=== PATIENT | female | born 1965 | race Caucasian/White ===

== ENCOUNTER 2016-06-01 13:50 | Emergency (ER) | payer OTHER ==
[2016-06-01 14:06] VITALS: RESP 16
--- NOTE | 2016-06-01 14:31 | CPEKG ---
Heart Rate: 88 RR Interval: 682 P-R Interval: 156 QRSD Interval: 76 QT Interval: 380 QTC Interval: 460 P [place]: 46 QRS [place]: 31 T Wave [place]: -35 EKG Severity - ABNORMAL ECG - EKG Impression: SINUS RHYTHM EKG Impression: NONSPECIFIC T ABNORMALITIES, ANTERIOR LEADS Electronically Signed By: Aries Lawson 02-Jun-2016 00:03:19
[2016-06-01] MEDS ORDERED: ASPIRIN 81 MG CHEWABLE TAB PO ONE ×2 (14:56)
[2016-06-01] MEDS ORDERED: NITROGLYCERIN 0.4 MG BTL SL ONE (15:14)
[2016-06-01 15:15] LABS: % IMMATURE GRANULYOCYTES 0.2 % (0.0-1.1); ABSOLUTE IMMATURE GRANULOCYTES 0.01 10^3/uL (0.00-0.10); ADD DIFF? NO; ADD MORPH? NO; ADD SCAN? NO; ATYPICAL LYMPHOCYTE FLAG 60 (0-99); FRAGMENT RBC FLAG 0 (0-99); HEMATOCRIT 47.9 % (38.0-47.0); HEMOGLOBIN 15.9 g/dL (12.6-16.3); LEFT SHIFT FLG 0 (0-99); LIPEMIA HEMOLYSIS FLAG 80 (0-99); MEAN CELL HEMOGLOBIN 27.5 pg (27.9-34.1); MEAN CELL HEMOGLOBIN CONCENTR. 33.2 g/dL (32.4-36.7); MEAN CELL VOLUME 82.7 fL (81.5-99.8); MEAN PLATELET VOLUME 8.7 fL (8.7-11.7); PLATELET CLUMPS FLAG 0 (0-99); PLATELET COUNT 283 10^3/uL (150-400); RED BLOOD CELL COUNT 5.79 10^6/uL (4.18-5.33); RED CELL DISTRIBUTION WIDTH 15.4 % (11.5-15.2)
[2016-06-01 15:25] LABS: INR 0.9 (0.83-1.16); PROTIME(PATIENT) 11.9 SEC (12.0-15.0)
[2016-06-01 15:33] LABS: ANION GAP 16 mEq/L (8-16); CALCIUM 9.7 mg/dL (8.5-10.4); CARBON DIOXIDE 23 mEq/l (22-31); CHLORIDE 105 mEq/L (97-110); CREATININE 0.7 mg/dL (0.6-1.0); GLOMERULAR FILTRATION RATE > 60; GLUCOSE 93 mg/dL (70-100); POTASSIUM 3.7 mEq/L (3.5-5.2); SODIUM 144 mEq/L (134-144)
[2016-06-01 15:39] LABS: TROPONIN I < 0.012 ng/mL (0-0.034)
--- NOTE | 2016-06-01 16:29 | UCPHY ---
H & P Patient Type: Established Chief Complaint Nursing Narrative: SICK FOR 8 DAYS, ON CEFDINIR SINCE 05/29 FEELING WORSE WITH CHEST CONGESTION AND BURNING, NAUSEA Time Seen by Provider: 06/01/16 14:54 HPI/ROS: This patient has had coughing for the past 8 days. She describes this is a dry hacky cough and she is placed on Omnicef by her primary care physician for potential bacterial bronchitis. She reports some burning discomfort in her chest 6/10 intensity that is substernal in bilateral location. It does not radiate. Does not change with breath or cough. The onset of the chest discomfort was yesterday. She has also had nausea since yesterday. She still tolerating p.o. intake with this. She also reports mild dyspnea and occasional diaphoresis. She states that she has a history of coronary artery spasm that usually manifests as jaw pain. She has not had any jaw pain with this episode. When she does have the coronary spasm with jaw pain usually resolves with supple nitroglycerin. She has not taken any nitroglycerin for this chest discomfort because she does not think that it is from her heart. ROS: No high fevers or chills. No significant fatigue. No other constitutional symptoms. HEENT: She has some nasal congestion associated with her symptoms and was prominent early in the illness and she reports that now settling in her chest. No ear pain. No throat pain. Pulmonary: No pleuritic pain. No respiratory distress. She has noticed significant wheezing. Cardiovascular: No lightheadedness or palpitations. No lower extremity swelling or calf pain. GI: No vomiting. No diarrhea. No abdominal pain. Integumentary: No skin rash. 10 point ROS is otherwise negative. 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 Her anginal equivalent is jaw pain. Dyslipidemia. She was on a statin and until last week. This was stopped due to associated myalgias. She weights the start of a new cholesterol med by her primary doctor or blending machine operator. Hx Asthma: No Hx Chronic Respiratory Disease: No Hx Diabetes: No Hx Cardiac Disease: Yes Hx Renal Disease: No Hx Cirrhosis: No Hx Alcoholism: No Hx HIV/AIDS: No Hx Splenectomy or Spleen Trauma: No Other PMH: cardiac arterial spasams, htn, parathyroid 2015 removal - Family History Significant Family History: No pertinent family hx - Social History Smoking Status: Never smoked Alcohol Use: Occasionally Drug Use: None - Physical Exam Exam: General Appearance: Pleasant 51-year-old female appears younger than her stated age. Alert, no distress. Eyes: Pupils equal and round no pallor or injection. ENT, Mouth: Mucous membranes moist. Respiratory: Clear to auscultation with minimal wheeze with cough. No rales or rhonchi. No chest wall tenderness is appreciated. Cardiovascular: Regular rate and rhythm. No murmur gallop rub. No calf swelling or tenderness. Gastrointestinal: Abdomen is soft and nontender, no masses, bowel sounds normal. Neurological: Alert with no focal deficits. Skin: Warm and dry, no rashes. Musculoskeletal: Neck is supple nontender. Extremities are symmetrical, full range of motion. Psychiatric: Mood and affect are normal. DIFFERENTIAL DIAGNOSIS: After history and physical exam differential diagnosis was considered for bronchitis, coronary syndrome, SD, pneumothorax, pneumonia Constitutional: Initial Vital Signs Temperature (C) 36.8 C 06/01/16 14:02 Heart Rate 93 06/01/16 14:02 Respiratory Rate 16 06/01/16 14:02 Blood Pressure 153/83 H 06/01/16 14:02 O2 Sat (%) 98 06/01/16 14:02 O2 Delivery Mode Room Air Allergies/Adverse Reactions: amoxicillin Allergy (Verified 06/01/16 14:06) Sulfa (Sulfonamide Antibiotics) Allergy (Verified 06/01/16 14:06) Home Medications: Medication Instructions Recorded Aspirin EC [Aspirin EC 81 mg (*)] 81 mg PO DAILY 11/23/15 Amlodipine Besylate 5 mg PO DAILY #30 tablet 11/30/15 Nitroglycerin [Nitrostat 0.4 mg 0.4 mg SL Q5M PRN #0 btl 11/30/15 (*)] Medical Decision Making - Diagnostics EKG Interpretation: 12 lead EKG performed at 2:29 p.m. reveals sinus rhythm at 88 Intervals: Normal throughout [place]: Normal throughout ST segments are notable for T-wave inversions in lead V2 and V3 with a less than a mm of ST depression in V3. Initial assessment: Sinus rhythm with anterior T-wave abnormalities cannot rule out ischemia. However when compared to an EKG dated November 30, 2015 there is no significant interval change. She has T inversions anteriorly on that EKG as well. Imaging: Chest x-ray: Normal with the exception of mild airway disease by my interpretation ED Course/Re-evaluation: IV, monitor, aspirin 324 p. o. 1 supple nitroglycerin without change in her burning discomfort in her chest. Review of her labs reveals normal troponin Other labs are unremarkable-CBC electrolytes. Discussion: This chest pain is atypical for a cardiac sores but because of the abnormal EKG pursued workup to rule out SD or coronary syndrome. After reviewing previous EKG there is no significant interval change and not think she is having coronary syndrome or SD. I think that the burning discomfort is attributable to her bronchitis. I counseled regarding this. Patient will continue Omnicef with addition of an albuterol inhaler for cough, wheeze or shortness of breath. I encouraged her to follow up with Dr. Quiros -blending machine operator this week for further evaluation as well for any ongoing chest discomfort. She will go to the emergency department for any significant worsening despite the treatment plan. - Data Points Laboratory Results: Laboratory Results 06/01/16 15:10 06/01/16 15:10 06/01/16 06/01/16 06/01/16 15:10 15:10 15:10 WBC 5.00 10^3/uL 10^3/uL (3.80-9.50) RBC 5.79 10^6/uL H 10^6/uL (4.18-5.33) Hgb 15.9 g/dL g/dL (12.6-16.3) Hct 47.9 % H % (38.0-47.0) MCV 82.7 fL fL (81.5-99.8) MCH 27.5 pg L pg (27.9-34.1) MCHC 33.2 g/dL g/dL (32.4-36.7) RDW 15.4 % H % (11.5-15.2) Plt Count 283 10^3/uL 10^3/uL (150-400) MPV 8.7 fL fL (8.7-11.7) Neut % (Auto) 54.2 % % (39.3-74.2) Lymph % (Auto) 33.2 % % (15.0-45.0) [place] % (Auto) 10.2 % % (4.5-13.0) Eos % (Auto) 1.8 % % (0.6-7.6) Baso % (Auto) 0.4 % % (0.3-1.7) Nucleat RBC Rel Count 0.0 % % (0.0-0.2) Absolute Neuts (auto) 2.71 10^3/uL 10^3/uL (1.70-6.50) Absolute Lymphs (auto) 1.66 10^3/uL 10^3/uL (1.00-3.00) Absolute Monos (auto) 0.51 10^3/uL 10^3/uL (0.30-0.80) Absolute Eos (auto) 0.09 10^3/uL 10^3/uL (0.03-0.40) Absolute Basos (auto) 0.02 10^3/uL 10^3/uL (0.02-0.10) Absolute Nucleated RBC 0.00 10^3/uL 10^3/uL (0-0.01) Immature Gran % 0.2 % % (0.0-1.1) Immature Gran # 0.01 10^3/uL 10^3/uL (0.00-0.10) PT 11.9 SEC L SEC (12.0-15.0) INR 0.90 (0.83-1.16) APTT 28.0 SEC SEC (23.0-38.0) Sodium 144 mEq/L mEq/L (134-144) Potassium 3.7 mEq/L mEq/L (3.5-5.2) Chloride 105 mEq/L mEq/L (97-110) Carbon Dioxide 23 mEq/l mEq/l (22-31) Anion Gap 16 mEq/L mEq/L (8-16) BUN 15 mg/dL mg/dL (7-23) Creatinine 0.7 mg/dL mg/dL (0.6-1.0) Estimated GFR > 60 Glucose 93 mg/dL mg/dL (70-100) Calcium 9.7 mg/dL mg/dL (8.5-10.4) Troponin I < 0.012 ng/mL ng/mL (0-0.034) Medications Given: Discontinued Medications Albuterol Sulfate (Proventil Inh Prepack) 1 mdi TAKEHOME EDNOW ONE Stop: 06/01/16 16:58 Last Admin: 06/01/16 17:07 Dose: 1 mdi Aspirin (Aspirin) 324 mg PO EDNOW ONE Stop: 06/01/16 14:57 Last Admin: 06/01/16 15:13 Dose: 324 mg Aspirin (Aspirin) 324 mg PO EDNOW ONE Stop: 06/01/16 14:57 Last Admin: 06/01/16 15:01 Dose: Not Given Nitroglycerin (Nitrostat) 0.4 mg SL EDNOW ONE Stop: 06/01/16 15:15 Last Admin: 06/01/16 15:25 Dose: 0.4 mg Departure - Departure Disposition: Home, Routine, Self-Care Clinical Impression: Atypical chest pain, Bronchitis Condition: Good Instructions: Chest Pain (ED), Acute Bronchitis (ED) Additional Instructions: Diagnosis: 1. Atypical chest pain 2. Bronchitis Care your EKG with you so that you have a baseline EKG in case you have any further symptoms Plan: Humidifier Albuterol inhaler with spacer for cough, wheeze or shortness of breath Continue Omnicef antibiotic Ibuprofen and Tylenol for pain if needed. Call Dr. Quiros, your blending machine operator arrange follow-up appointment this week for further evaluation for any ongoing symptoms Go to the emergency department for any significant worsening of her symptoms despite the treatment plan. Referrals: Leonie Vazquez MD [Primary Care Provider] - As per Instructions - PQRS PQRS Measurement: NA
[2016-06-01 16:30] VITALS: BP 131/81; PULSE 78; TEMP 98.1; O2SAT 94
[2016-06-01] MEDS ORDERED: ALBUTEROL INH PREPACK MDI TAKEHOME ONE (16:57)
== END 2016-06-01 17:08 | disposition home or self-care (01) ==
LOC: CED 13:50
DX: R07.89 Other chest pain (principal); J40 Bronchitis, not specified as acute or chronic
CPT/HCPCS: 71020-PO; 80048-PO; 84484-PO; 85025-PO; 85610-PO; 85730-PO; 93010-PO; 99215-PO; G0463-PO

== ENCOUNTER → 2017-01-26 | Outpatient (CLI) | payer OTHER | LOC: CIMAGING 12:30 | PROVIDERS: ATTEND Podiatrist Foot & Ankle Surgery | DX: S82.61XS Displaced fracture of lateral malleolus of right fibula, sequela (principal) | CPT/HCPCS: 73610-PO ==

== ENCOUNTER 2017-06-16 03:16 | Observation (INO) | payer OTHER ==
[2017-06-16 05:02] VITALS: O2SAT 94
[2017-06-16] MEDS ORDERED: ONDANSETRON 4 MG/2 ML VIAL IVP PRN (05:51)
[2017-06-16] MEDS ORDERED: ACETAMINOPHEN 325 MG TAB PO PRN (05:51)
[2017-06-16] MEDS ORDERED: LORazepam 0.5 MG TAB PO PRN (05:51)
[2017-06-16] MEDS ORDERED: HYDROCODONE/APAP 5/325 TAB PO PRN (05:51)
[2017-06-16] MEDS ORDERED: NITROGLYCERIN 0.4 MG BTL SL PRN ×2 (05:56→13:42)
[2017-06-16] MEDS ORDERED: NS 1,000 ML IV SCH (06:00)
[2017-06-16 06:48] LABS: CREATINE KINASE 88 IU/L (0-156)
--- NOTE | 2017-06-16 08:12 | GHP ---
[f rep st] HISTORY AND PHYSICAL DATE OF ADMISSION: 06/16/2017 PRIMARY MOTION STUDY ANALYST: Dr. Quiros. SOURCE: Patient provides history, appears reliable. Her EMR was reviewed and case discussed with ED provider from [facility] prior to admission. CHIEF COMPLAINT: Chest pain. HISTORY OF PRESENT ILLNESS: This is a very pleasant 52-year-old female with past medical history sig nificant for hypertension, hyperlipidemia, LVH, fibromuscular dysplasia, CAD with history of vasospas m and renal artery stenosis who presents to the emergency department today at [facility] with complaints of new onset of left-sided chest pain and pressure. Patient was not significantly having any increased exertion when she developed her symptoms. She reports that when she lies on her right side, her pain is improved. She did try to take 2 doses of nitroglycerin as well as some aspirin itz or to arrival in the emergency department. She did have some minimal relief, but, however, her chest pain continued to persist, and so she presented to the emergency department. Patient, over there, r eceived a dose of morphine and reported some improvement in her symptoms. She had reported to the ER doctor there that her symptoms had resolved. However, patient states that she has had some underlyi ng chest pain that has persisted. It is mild but has increased since her arrival to [facility]. She denies any associated diaphoresis. She did state that she became clammy, but she does interm ittently have some hot flashes, and so she is unsure if this was associated with that or her chest pa in. She does report that she developed some numbness and tingling to her left neck, jaw, and left ar m and fingers which is new and a variation from her vasospasm symptoms. Patient denies any associate d shortness of breath. No nausea or vomiting. She denies any lower extremity edema. No orthopnea. No PND. Patient does report in the past week she did develop some myalgias and increasing fatigue, some minimal decrease in appetite, and she thought that perhaps she was coming down with a flu but ne pool developed any respiratory symptoms. She has not had any diarrhea. No known sick contacts. No d ysuria or hematuria. No other infections, fevers, or chills reported. REVIEW OF SYSTEMS: Negative except as noted above. ALLERGIES: Amoxicillin, sulfa, and certain statins. She develops some increasing fatigue. HOME MEDICATIONS: As per EMR. Amlodipine 2.5 mg p.o. daily, aspirin 81 mg p.o. daily, Coenzyme Q10 one hundred mg p.o. daily, Meloxicam mg p.o. daily, Nitrostat 0.4 mg sublingual q.5 minute s p.r.n. for chest pain, pravastatin 10 mg p.o. daily. PAST MEDICAL HISTORY: Significant for hyperlipidemia, history of fibromuscular dysplasia, renal ed ry stenosis, CAD, vasospasm, LVH. PAST SURGICAL HISTORY: Significant for parathyroidectomy, single, and LASIK surgery. Patient has al so had a cardiac cath without any stenting. FAMILY HISTORY: Significant for COPD in mother. SOCIAL HISTORY: Patient currently lives alone. She has been exposed to secondhand smoke as her moth er was a smoker in her youth. She does not smoke any tobacco. No drugs. She does drink 1-2 drinks a week. CODE STATUS: Full at this time. Patient will plan to go over her advance directives with her sister and consider. She is not sure if she would want to be intubated, but at this time she would like to be a full code. PHYSICAL EXAM: VITALS: Upon arrival to [facility], temperature 36.8, pulse 80, respiratory r ate 18, blood pressure 127/85, 95% on room air. Current vital signs on the floor: Blood pressure 14 1/89, heart rate of 73, respiratory rate 10, O2 sat 94% on room air with temperature 36.5. GENERAL: No acute distress. Very pleasant adult female who is lying quietly in bed. HEAD: Normocephalic, a traumatic. EYES: Extraocular muscles are grossly intact. Pupils equal, round, reactive to light bi laterally and symmetric. No scleral icterus or conjunctival injection. ENT: Mucous membranes appea r moist. She does have some cracked, dry lips. No oropharyngeal erythema or exudates. No nasal dis charge. NECK: Supple. Trachea midline. CV: Regular rate and rhythm. No murmurs, rubs, or gallop s appreciated. No chest wall tenderness to palpation. RESPIRATORY: Unlabored breathing. Lungs are clear to auscultation bilaterally. No wheezes, rales, or rhonchi. ABDOMEN: Positive bowel sounds. Soft, nontender to palpation. No rebound, guarding, or masses appreciated. : No suprapubic ten derness to palpation. No Lopez catheter in place. EXTREMITIES: No cyanosis, clubbing, or edema pao reciated. Patient with 1+ pedal pulses bilaterally and symmetric. NEURO: Grossly nonfocal. No fac ial drooping. Moves all extremities. Strength intact. Patient is able to sit up independently. PS YCH: Patient awake, alert, and oriented x4. Thought process, content, and questions are all appropr iate. LABORATORY STUDIES: From [facility]: WBC 7.6, hemoglobin is 15.8, hematocrit 47.9, MCV of 88 , platelet count is 308. MCV is 88. No bands. Sodium is 142, potassium is 3.8, chloride 106, CO2 i s 27, BUN 18, creatinine 0.92, GFR of 70.8, BUN is 20, glucose is 104, calcium is 9.3, and anion gap 13. Troponin was negative. Repeat laboratory studies: CK 88. CK-MB is 1.05. Troponin is negative. BTNP is less than 11. EKG from [facility] shows normal sinus rhythm. Patient with some T-wave inversions in the inf erior leads. EKG compared to one obtained in our system from 06/01/2016 which is nearly identical. There are no acute ST elevations. Chest x-ray report reviewed. This is in the chart, but I am unable to open it at this time. Formal radiology report in records was negative. ASSESSMENT AND PLAN: This is a pleasant 52-year-old female who presents as a direct admission from [facility] ER for ongoing chest pain. 1. Chest pain. Differential diagnosis including angina versus pericarditis versus pleuritic-type ch est pain. Serial enzymes at this time are negative. We will plan to obtain a repeat EKG to ensure s tability. Patient does continue to complain of some underlying chest pressure and pain. Morphine an d nitroglycerin did improve her symptoms and nearly resolve, but she states that they did not complet tristan go away and currently have increased slightly. We will plan to put patient on a nitro paste for continuous release. She did initially decline sublingual nitro secondary to the maxwell of post-nitro h eadache. She will have morphine available in addition. Cardiology will be consulted this morning. She is followed by Dr. Quiros. Patient did already take a full-dose aspirin prior to arrival at [facility]. We will continue to monitor her on PCU for observation for close telemetry monitoring. We will hold off on any NSAID dosing until can rule out an angina or acute coronary syndrome. A rep eat troponin, however, was within normal limits. We will await Cardiology recommendations. We will keep her n.p.o. 2. Hyperlipidemia. Resume patient's statin. 3. Coronary artery disease with history of vasospasm. 4. Patient reports history of left ventricular hypertrophy. Blood pressures at this time are contro lled. 5. Renal artery stenosis. Blood pressures are controlled. We will plan to resume patient's home me dications. 6. Fluid/electrolyte/nutrition. Patient will receive some IV fluids for gentle hydration. She does have some dry, cracked lips and, as noted, some minimal decrease in appetite, but tolerating oral in take previously to admission, but electrolytes will be monitored, replaced if needed. 7. Prophylaxis. SCDs. Holding anticoagulation pending Cardiology evaluation. 8. Code status at this time will be full. Patient desires her sister to act as MD POA if needed. 9. Disposition. Patient admitted to observation status on PCU for close cardiac monitoring pending Cardiology recommendations. /[id number]/MODL
[2017-06-16] MEDS ORDERED: NITROGLYCERIN 0.4 MG/HR PATCH TD SCH (09:00)
--- NOTE | 2017-06-16 09:10 | CPEKG ---
Heart Rate: 73 RR Interval: 822 P-R Interval: 164 QRSD Interval: 74 QT Interval: 404 QTC Interval: 446 P [place]: 54 QRS [place]: 38 T Wave [place]: -7 EKG Severity - ABNORMAL ECG - EKG Impression: SINUS RHYTHM EKG Impression: T ABNORMALITIES, DIFFUSE LEADS Electronically Signed By: Paul Elena 17-Jun-2017 10:16:41
[2017-06-16] MEDS ORDERED: amLODIPine BESYLATE 5 MG TAB PO SCH (09:15)
--- NOTE | 2017-06-16 09:42 | GCON ---
[f rep st] CONSULTATION CARDIOLOGY CONSULT REFERRING PHYSICIAN: Anna Pinzon MD CHIEF COMPLAINT: Chest pain. HISTORY OF PRESENT ILLNESS: This is a 52-year-old female with history of hypertension. The patient apparently has had episodes of chest pain in the past and sees Dr. Quiros as an outpatient. The олег tracey did have a catheterization done in the fall of 2015, which according to the patient was "normal." The patient indicates that yesterday she presented to [facility] with complaints of new onse t left-sided chest pain and pressure. She did indicate last week she did have what appeared to be a possible muscle pain, respiratory infection, though it did not progress into much. She indicates naa t her pain is mainly when she takes deep breaths in, and is worse when lying flat versus sitting up. Her pain actually is improved also when she lies on her right side versus her left. Currently, mary blackmon is afebrile. Blood pressure is mildly elevated. Troponins have been negative x1 set. ECG is cu rrently pending at this point, but on telemetry, the patient appears to be in normal sinus rhythm. PAST MEDICAL HISTORY: Significant for history of coronary vasospasm, renal artery stenosis, hyperten hai, hyperlipidemia, fibromuscular dysplasia. PAST SURGICAL HISTORY: Significant for parathyroidectomy. HOME MEDICATIONS: Consist of amlodipine, aspirin, coenzyme Q10, pravastatin. FAMILY HISTORY: Significant for COPD on the maternal side. SOCIAL HISTORY: No current smoking. No drugs. Alcohol: Once to twice a week. REVIEW OF SYSTEMS: Patient denies any vision changes. No headache. No palpitations. She indicates having dull substernal discomfort when she breathes deeply and lies completely supine. No shortness of breath. No abdominal pain. No lower extremity pain. PHYSICAL EXAM: VITAL SIGNS: Afebrile at 96, blood pressure 140/70, with a heart rate of 72, respira tions 12, sat 95% on room air. HEENT: Pupils equal, round, reactive to light and accommodation. Ex traocular muscles intact. CARDIOVASCULAR: Regular rate and rhythm, S1, S2. LUNGS: Clear bilaterally. ABDOMEN: Soft, nontender. No guarding . EXTREMITIES: No clubbing, no cyanosis, no edema. NEUROLOGIC: Alert and oriented x3. LABORATORY VALUES: Currently shows troponins of less than 0.01. Chem 7 and CBC are still pending. ASSESSMENT/PLAN: Chest pain. At this time, the patient's chest pain appears to be consistent with a pleuritic/pericardial etiology, as it is worse when she takes a deep breath in, lies completely supi ne, and improves when she sits forward. I will check a stat EKG, as an EKG has not been performed ye t. Also stat chem 7, CBC, as the labs are not in as well. We will start her on Indocin 25 mg p.o. b .i.d., as well as continue her home amlodipine dose. Check a cardiac echo. The patient also reports having a "normal" heart catheterization less than 2 years ago. We will try to obtain this report as well. /[id number]/MODL
[2017-06-16 11:05] VITALS: PULSE 88
--- NOTE | 2017-06-16 11:19 | ECHO ---
[email or web address] [address] [address] Main: [phone] Fax: [email or web address] Echocardiogram Name: SIMON MALLORY MR#: [id number] Study Date: 06/16/2017 Study Time: 10:09 AM Date of : 1965 Age: 52 year(s) Height: 152.4 cm (60 in.) Weight: 55.34 kg (122 lb.) BSA: 1.51 m2 Gender: Female Examination: Echo Indication: CP/Pericarditis Image Quality: Contrast: Requested by: Tervor Marsh BP: 123 mmHg/80 mmHg Heart Rate: Rhythm: Normal sinus rhythm Indication: CP/Pericarditis Procedure Staff Caustic Mixer: Shashi Mendosa RDCS Reading Physician: Yvette Dos Santos MD Requesting Provider: Conclusions: Normal size left ventricle. Mild to moderate LVH. Global hypercontractility of the left ventricle. EF is 79 %. No regional wall motion abnormality. Normal size right ventricle. Normal RV function. No pericardial effusion. No prior echo Measurements: Chambers Valvular Assessment AV/MV Valvular Assessment TV/PV Normal Normal Normal Name Value Range Name Value Range Name Value Range Ao Gia (MM): 2.5 cm (2.2 cm-3.7 AV Vmax: 1.49 m/s (1 m/s-1.7 PV Vmax: 0.84 m/s (0.6 m/s-0.9 cm) m/s) m/s) IVSd (2D): 1.2 cm (0.6 cm-1.1 AV maxP mmHg ( - ) PV PGmax: 3 mmHg ( - ) cm) LVOT Vmax: 1.24 m/s (0.7 m/s-1.1 LVDd (2D): 3.2 cm (3.9 cm-5.3 m/s) cm) MV E Vmax: 0.73 m/s ( - ) LVDs (2D): 1.7 cm (2.1 cm-4 MV A Vmax: 1.01 m/s ( - ) cm) MV E/A: 0.72 ( - ) LVPWd (2D): 1.0 cm ( - ) LVEF (2D): 79 (>=54 %) Continued Measurements: Chambers Valvular Assessment AV/MV Name Value Name Value Patient: SIMON MALLORY Study Date: 06/16/2017 Page 1 of 2 10:09 AM LADs Lon.9 cm MV E' Septal: 0.05 m/s LA Area: 10.8 cm2 MV E/E' Septal: 15.30 LA Volume: 25 ml MV E/E' Lateral: 11.20 LA Volume Index: 16.6 ml/m2 Findings: Left Ventricle: Normal size left ventricle. Mild to moderate LVH. Global hypercontractility of the left ventricle. EF is 79 %. No regional wall motion abnormality. Diastolic dysfunction is present. . No LVOT obstruction. Right Ventricle: Normal size right ventricle. Normal RV function. Left Atrium: The left atrium is normal in size. Right Atrium: The right atrium is normal in size. Mitral Valve: The mitral valve is normal in appearance and function. There is no mitral valve regurgitation. No mitral stenosis is present. Aortic Valve: The aortic valve is normal in appearance and function. The aortic valve is tri-leaflet and functions normally. Tricuspid Valve: The tricuspid valve is normal in appearance and function. Pulmonic Valve: The pulmonic valve is normal in appearance and function. Aorta: The aorta is normal. Pericardium: No pericardial effusion. No echocardiographic evidence of hemodynamic compromise. Exam Comments: The LV is hyperdynamic and the LV mid cavity PG with a VSM is 5 mmHg.. (No Signature Object) Patient: SIMON MALLORY Study Date: 06/16/2017 Page 2 of 2 10:09 AM [id number]
--- NOTE | 2017-06-16 12:59 | ASMTCMCOM ---
CM Note CM Note Notes: Patient admitted for chest pain that appears to have a pleuritic/pericardial etiology. An EKG is pending. She will likely discharge home with no needs; she is normally independent. Case Management available if this changes. Date Signed: 06/16/2017 12:59 PM Electronically Signed By:Kirsten Slater RN
[2017-06-16 13:17] LABS: PLATELET COUNT 270 10^3/uL (150-400)
[2017-06-16] MEDS ORDERED: ASPIRIN EC 81 MG TAB PO SCH (13:45)
[2017-06-16] MEDS ORDERED: IBUPROFEN 600 MG TAB PO ONE (13:59)
[2017-06-16] MEDS ORDERED: amLODIPine BESYLATE 5 MG TAB PO ONE (15:00)
[2017-06-16 15:11] VITALS: BP 136/85; RESP 18; TEMP 98.1
--- NOTE | 2017-06-16 17:48 | PDDCSUM ---
Discharge Summary Discharge Summary: DISCHARGE DIAGNOSES: -pleuritic chest pain, suspected pleuritis or costochondritis -history of coronary vasospasms, no current evidence of acute cardiac episode CONSULTANTS: Dr. Marsh PROCEDURES: Echocardiogram showing no cardiac abnormalities and no evidence of pericarditis or other concerning findings HOSPITAL COURSE SUMMARY: This patient comes into the hospital complaining of a pleuritic pain in the upper left chest area just below the clavicle. There was no associated injury. She did notice that she had symptoms of fatigue and diffuse myalgias that started around 6-8 days ago and are improving but persisting at this time. She has not noticed fevers or upper respiratory infection symptoms signs. Because she has a history of coronary vasal spasm diagnosed previously she did try treating her symptom as above with nitroglycerin with no real improvement. She came here and was observed for any other signs of cardiac disease. She rule out for myocardial infarction and has no heart failure, hemodynamic changes, or arrhythmia. Echocardiogram and EKG did not show any evidence of pericarditis. Her symptoms are most likely inflammatory, may be viral related to the fatigue and myalgias, or may have other cause but we cannot find evidence of bacterial infection, pneumonia, or cardiac abnormality. Her D-dimer is undetectable and she has no leg pain or swelling or tachycardia; she is not felt to have pulmonary embolism. She was started on some ibuprofen here and is starting to feel some relief of her pain. She is felt stable for discharge to home. PENDING TEST RESULTS: None MEDICATION CHANGES: Ibuprofen 4-600 mg 3 times a day with food FOLLOW-UP PLAN: With Dr. Rosa her primary care physician later this week or early next week Greater than 35 minutes bedside and care coordination time today
[2017-06-16] MEDS ORDERED: INDOMETHACIN 25 MG CAP PO SCH (18:00)
[2017-06-16] MEDS ORDERED: PRAVASTATIN SODIUM 10 MG TAB PO SCH (18:00)
[2017-06-16] MEDS ORDERED: PATCH REMOVAL 1 EA PATCH TD SCH (21:00)
[2017-06-17] MEDS ORDERED: Herbals/Supplements -Info Only PO SCH (09:00)
[2017-06-17] MEDS ORDERED: CHOLECALCIFEROL VIT D3 1,000 UNITS TAB PO SCH (09:00)
== END 2017-06-16 17:56 | disposition home or self-care (01) ==
LOC: F2W 04:48 → INTOOBSV 04:48
PROVIDERS: ADMIT Family Medicine; ATTEND Family Medicine
DX: R07.89 Other chest pain (principal)
CPT/HCPCS: 93005; 93306; G0378

== ENCOUNTER 2017-09-26 16:46 | Observation (INO) | payer OTHER ==
--- NOTE | 2017-09-26 17:01 | CPEKG ---
Heart Rate: 78 RR Interval: 769 P-R Interval: 144 QRSD Interval: 76 QT Interval: 396 QTC Interval: 452 P [place]: 3 QRS [place]: 11 T Wave [place]: -21 EKG Severity - BORDERLINE ECG - EKG Impression: SINUS RHYTHM EKG Impression: BORDERLINE T ABNORMALITIES, DIFFUSE LEADS Electronically Signed By: Macho Castle 26-Sep-2017 17:16:25
[2017-09-26] MEDS ORDERED: ASPIRIN 81 MG CHEWABLE TAB PO ONE (17:33)
[2017-09-26] MEDS ORDERED: ASPIRIN 81 MG CHEWABLE TAB ONE (17:45)
--- NOTE | 2017-09-26 18:18 | EDPHY ---
H & P Smoking Status: Former smoker Time Seen by Provider: 09/26/17 18:12 HPI/ROS: CHIEF COMPLAINT: Chest pain HISTORY OF PRESENT ILLNESS: The patient is a 52-year-old female here with 2-3 days of left-sided chest pain. She describes the pain initially as intermittent and sharp and squeezing. Over the last 24 hr has become constant and still sharp and squeezing in nature. Pain is worse with sitting up and slightly improved with lying down. She denies any change in pain with deep respiration. She has had no cough or fever or hemoptysis. She has no history of blood clot takes no estrogen. She has no recent travel or surgery. She has had no unilateral leg swelling or history of DVT or PE. She does have an extensive cardiac history and sees Dr. Quiros. Originally in the fall of 2015 she was experiencing chest pain and was found to have elevated blood pressures admitted and had a cardiac catheterization which showed moderate atherosclerosis. Additionally vasospasm was seen during the catheterization. She was started on nitroglycerin for vasospasm in addition to a baby aspirin and amlodipine. This past spring she was again admitted to our hospital with chest pain. Again diffuse T-wave inversions were noted. She had negative serial troponins and workup for pulmonary embolism. Additionally echo was performed showed no pericarditis. Is discharged with diagnosis of muscle skeletal pain. Most recently with her chest pain she has been taking nitro for total of 3 tabs today and has intermittent relief of pain but the pain returns. She denies and any new symptoms. Pain does radiate to her lower left jaw on occasion. This is not a new symptom. REVIEW OF SYSTEMS: Constitutional: No fever, no chills. Eyes: No discharge. ENT: No sore throat. Cardiovascular: No chest pain, no palpitations. Respiratory: No cough, no shortness of breath. Gastrointestinal: No abdominal pain, no vomiting. Genitourinary: No hematuria. Musculoskeletal: No back pain. Skin: No rashes. Neurological: No headache. (Gerard Bryant) Physical Exam: General Appearance: Alert and no distress. Eyes: Pupils equal and round no injection. Respiratory: Chest is nontender, lungs are clear to auscultation. Cardiac: regular rate and rhythm. Gastrointestinal: Abdomen is soft and nontender, no masses, bowel sounds normal. Musculoskeletal: Neck is supple and nontender. Extremities have full range of motion and are nontender. No lower extremity edema or unilateral calf swelling. Negative Homans bilaterally Skin: No rashes or lesions. (Gerard Bryant) Constitutional: Initial Vital Signs Temperature (C) 36.6 C 09/26/17 16:47 Heart Rate 85 09/26/17 16:47 Respiratory Rate 18 09/26/17 16:47 Blood Pressure 144/102 H 09/26/17 16:47 O2 Sat (%) 96 09/26/17 16:47 O2 Delivery Mode Room Air Allergies/Adverse Reactions: amoxicillin Allergy (Mild, Verified 09/26/17 16:50) Rash Sulfa (Sulfonamide Antibiotics) Allergy (Mild, Verified 09/26/17 16:50) Rash Home Medications: Medication Instructions Recorded Aspirin EC [Aspirin EC 81 mg (*)] 81 mg PO DAILY 11/23/15 Nitroglycerin [Nitrostat 0.4 mg 0.4 mg SL Q5M PRN #0 btl 11/30/15 (*)] Pravastatin Sodium [Pravachol] 10 mg PO DAILY18 06/16/17 amLODIPine BESYLATE [Norvasc 10 mg 10 mg PO DAILY 06/16/17 (*)] Herbals/Supplements -Info Only 1 ea PO DAILY 09/26/17 Medical Decision Making - Diagnostics EKG Interpretation: Normal sinus rhythm with diffuse T-wave inversions but no ST elevation or depression (Gerard Bryant) Imaging Results: Imaging Impressions Chest X-Ray 09/26/17 17:28 Impression: Chest negative for acute abnormality. ED Course/Re-evaluation: Patient here with history of coronary artery disease and chest pain radiating to the left jaw. She does have an extensive history of coronary artery vasospasm. I discussed this with her cardiology group who recommends admission for chest pain rule out. Initial EKG shows no acute changes when compared to prior and her initial troponin is negative. She was given aspirin in the emergency room. (Gerard Bryant) Differential Diagnosis: Differential diagnosis considered for chest pain including but not limited to myocardial ischemia, aortic dissection, pericarditis, pulmonary embolus, chest wall pain, pleural inflammation and pulmonary infectious causes. (Macho Castle) Other Provider: PHYSICIAN DOCUMENTATION: The patient was evaluated and managed by the Physician [employer] Manager and myself. I have reviewed the chart and agree with the findings and plan of care as documented. In addition, I examined the patient myself at 1745. History confirmed as chest pain bad enough that she had to take 4 nitroglycerin today. Physical findings as follows: Regular rate rhythm without murmur. 12-lead EKG interpreted by me; official reading is in trace master. My interpretation is sinus rhythm rate 78 with some borderline nonspecific T-wave abnormalities diffusely. Discussed with Cardiology Dr. Pineda by [facility]; cardiology recommends admission, discussed with hospitalist service. I am the secondary supervising physician. (Macho Castle) - Data Points Laboratory Results: Laboratory Results 09/26/17 17:00 09/26/17 17:00 09/26/17 09/26/17 09/26/17 17:25 17:00 17:00 WBC 6.91 10^3/uL 10^3/uL (3.80-9.50) RBC 5.25 10^6/uL 10^6/uL (4.18-5.33) Hgb 15.1 g/dL g/dL (12.6-16.3) Hct 46.6 % % (38.0-47.0) MCV 88.8 fL fL (81.5-99.8) MCH 28.8 pg pg (27.9-34.1) MCHC 32.4 g/dL g/dL (32.4-36.7) RDW 13.4 % % (11.5-15.2) Plt Count 299 10^3/uL 10^3/uL (150-400) Sodium 141 mEq/L mEq/L (135-145) Potassium 3.4 mEq/L mEq/L (3.3-5.0) Chloride 107 mEq/L mEq/L (97-110) Carbon Dioxide 29 mEq/l mEq/l (22-31) Anion Gap 5 mEq/L L mEq/L (8-16) BUN 15 mg/dL mg/dL (7-23) Creatinine 0.7 mg/dL mg/dL (0.6-1.0) Estimated GFR > 60 Glucose 94 mg/dL mg/dL (70-100) Calcium 9.7 mg/dL mg/dL (8.5-10.4) POC Troponin I 0.00 ng/mL ng/mL (0.00-0.08) Medications Given: Sodium Chloride (Ns) 1,000 mls @ 75 mls/hr IV CONT BO Stop: 03/25/18 21:14 Last Admin: 09/26/17 22:51 Dose: 1,000 mls Ketorolac Tromethamine (Toradol) 15 mg IVP Q6HRS BO Stop: 10/02/17 00:00 Last Admin: 09/26/17 22:51 Dose: 15 mg Oxycodone HCl (Oxycodone Ir) 5 - 10 mg PO Q3HRS PRN PRN Reason: Pain, Severe Able to Take PO Stop: 10/06/17 21:01 Last Admin: 09/26/17 22:50 Dose: 10 mg Discontinued Medications Aspirin (Aspirin) 243 mg PO EDNOW ONE Stop: 09/26/17 17:34 Last Admin: 09/26/17 17:46 Dose: 243 mg Ketorolac Tromethamine (Toradol) 15 mg IVP ONCE ONE Stop: 09/26/17 19:53 Last Admin: 09/26/17 19:56 Dose: 15 mg Point of Care Test Results: Chemistry 09/26/17 17:25 POC Troponin I 0.00 ng/mL ng/mL (0.00-0.08) Departure - Departure Disposition: [facility] Inpatient Acute Clinical Impression: Chest pain Qualifiers: Chest pain type: unspecified Qualified Code(s): R07.9 - Chest pain, unspecified Condition: Good
[2017-09-26] MEDS ORDERED: KETOROLAC 15 MG/1 ML SDV IVP ONE (19:52)
[2017-09-26] MEDS ORDERED: KETOROLAC 15 MG/1 ML SDV ONE (19:53)
[2017-09-26] MEDS ORDERED: oxyCODONE IR 5 MG TAB PO PRN (21:02)
[2017-09-26] MEDS ORDERED: ONDANSETRON 4 MG/2 ML VIAL IVP PRN (21:02)
[2017-09-26] MEDS ORDERED: PROMETHAZINE HCL 25 MG/ML INJ IVP PRN (21:02)
[2017-09-26] MEDS ORDERED: LORazepam 0.5 MG TAB PO PRN (21:02)
[2017-09-26] MEDS ORDERED: ONDANSETRON DISINTEGRATING 4 MG TAB PO PRN (21:02)
[2017-09-26] MEDS ORDERED: LORazepam 2 MG/ML INJ IVP PRN (21:02)
[2017-09-26] MEDS ORDERED: ACETAMINOPHEN 325 MG TAB PO PRN (21:02)
[2017-09-26] MEDS ORDERED: NITROGLYCERIN 0.4 MG BTL SL PRN (21:05)
[2017-09-26] MEDS ORDERED: NS 1,000 ML IV SCH (21:15)
[2017-09-26] MEDS: KETOROLAC 15 MG/1 ML SDV IVP SCH (22:51)
--- NOTE | 2017-09-26 23:04 | GHP ---
[f rep st] HISTORY AND PHYSICAL DATE OF ADMISSION: 09/26/2017 CHIEF COMPLAINT: Chest pain. HISTORY: This is a 52-year-old female who has a past medical history of nonobstructive coronary ed ry disease as well as coronary vasospasms and fibromuscular dysplasia who presents with 2-3 days of r ecurrent left-sided chest pain. The patient notes that she often has similar chest pain that has bee n attributed to her coronary vasospasm, but it generally improves with nitroglycerin. Yesterday, she took 2 nitroglycerins before her symptoms improved, and today she took 4 without any improvement. F or that reason, she came to the emergency department for further evaluation. She notes that the pain does seem to have a positional component to it and that it is worse when she is sitting up in bed or when she is lying down. She describes it as a squeezing. She notes it is similar to her prior bout s of chest pain other than the fact that it is unrelenting. PAST MEDICAL HISTORY: Includes: 1. Nonobstructive coronary artery disease. 2. Coronary vasospasm. 3. Hypertension. 4. Hyperlipidemia. 5. Fibromuscular dysplasia. 6. Renal artery stenosis. 7. Left ventricular hypertrophy. PAST SURGICAL HISTORY: Includes: 1. Parathyroidectomy. 2. LASIK surgery. 3. Cardiac catheterization. SOCIAL HISTORY: The patient denies tobacco or drug use. She drinks alcohol occasionally. She works as a teacher. FAMILY HISTORY: Mother with COPD. MEDICATIONS: Include: 1. Amlodipine. 2. Pravastatin. 3. Nitroglycerin. 4. Aspirin. ALLERGIES: Include amoxicillin and sulfa. REVIEW OF SYSTEMS: 10-point review of systems obtained, negative except as per HPI. PHYSICAL EXAMINATION: VITAL SIGNS: BP 132/85, heart rate 81, respiratory rate 15, O2 sats 96% on ro om air, temperature is 36.4. GENERAL APPEARANCE: This is a well-developed/well-nourished female. S he is awake and alert. She is in no acute distress. EYES: Anicteric. HENT: Oropharynx clear. CA RDIOVASCULAR: Regular rate and rhythm. No MRG. PULMONARY: CTA bilaterally. Normal work of breath ing. ABDOMEN: Soft, nontender, nondistended. EXTREMITIES: No clubbing, cyanosis, or edema. SKIN: Warm, dry, well perfused. NEURO/PSYCH: Oriented, appropriate, and pleasant. CLINICAL DATA: A CBC is unremarkable. Chemistry is unremarkable. Troponin is 0. Chest x-ray, personally reviewed and interpreted, shows no acute abnormalities. EKG, personally reviewed and interpreted, shows a sinus rhythm. There are diffuse T-wave inversions and flattening. ASSESSMENT AND PLAN: This is 52-year-old female with a past medical history of nonobstructive franks ry artery disease as well as coronary vasospasm presenting with recurrent chest pain. 1. Recurrent chest pain. The patient has had several admissions for similar issues, most recently i n May. She has had fairly extensive outpatient workup including echocardiogram in May, a cardiac catheterization and nuclear stress test in 2015. Her last cardiac cath did show severe and diffuse coronary artery spasm per Dr. Muir's note. She was started on nitroglycerin with consideration to transition to long-acting nitroglycerin versus ranolazine if her chest pain should continue. At thi s point, given her presenting symptoms, she may be a candidate at this point for these medical interv entions versus repeat cardiac catheterization. Will plan to monitor on telemetry overnight. We will trend troponins. We will keep her n.p.o. after midnight in anticipation of Cardiology consultation in the morning. Given diffuse T-wave changes and some positional component to her pain, this certain ly could be a viral pericarditis which was presumed to be the etiology for her last chest pain presen tation. We will continue Toradol for the time being. 2. Coronary vasospasms. As per above. She is followed by Dr. Quiros. 3. Coronary artery disease. This was found to be nonflow limiting. She is continued on aspirin and statin. 4. Fibromuscular dysplasia. Patient did have a noted affected right renal artery that is status pos t balloon angioplasty causing significant hypertension that has now improved. 5. Observation status. 6. Patient is new to my care. Old records reviewed, summarized as per HPI and past medical history. Care plan reviewed with ER physician including plans for cardiac workup. /[id number]/MODL
[2017-09-27] MEDS: KETOROLAC 15 MG/1 ML SDV IVP SCH (05:52)
[2017-09-27 07:27] VITALS: BP 129/89
[2017-09-27] MEDS ORDERED: ASPIRIN EC 81 MG TAB PO SCH (09:00)
--- NOTE | 2017-09-27 09:29 | CPEKG ---
Heart Rate: 70 RR Interval: 857 P-R Interval: 156 QRSD Interval: 80 QT Interval: 420 QTC Interval: 454 P Camilla: 7 QRS Camilla: 18 T Wave Camilla: -7 EKG Severity - NORMAL ECG - EKG Impression: SINUS RHYTHM Electronically Signed By: Gt Alvarado 01-Oct-2017 21:50:30
--- NOTE | 2017-09-27 09:55 | GCON ---
[f rep st] CONSULTATION HISTORY OF PRESENT ILLNESS: This is a 52-year-old female with past medical history of parathyroidectomy, hypertension, LASIK surgery who has been evaluated in the hospital over the past 2 years for atypical chest pain. Her initial presentation was in 2015, when she had atypical chest pain associated with hypertensive urgency, and when that was treated, her pain went away; however, she had repeated admission in the same year at which point in time, cardiac catheterization was done. Vasospasm was noted with mild nonobstructive [id number] coronary artery stenosis. Some fibromuscular dysplasia was noted in the renal artery. Since then, the patient has done well and has followed up with Dr. Quiros on a regular basis. This May, the patient came in with chest pain at which point in time, she was diagnosed as having possible pericarditis and she was discharged to home at that point in time. She comes in again for chest pain, which started day before yesterday at which point in time, as per recommendation, she took nitroglycerin and the pain went away. The patient had episodes of chest pain once again yesterday and she had to take 4 nitroglycerin, which concerned her, and hence, she came to the hospital. On further questioning, the patient said her pain when she came in was 7/10, and after she has been here, it has decreased to 5/10; however, it remains consistent at 5/10 throughout. There is some positional component to it ; however, with walking, it does not get worse. No change with taking a deep breath or with coughing. The patient denies lightheadedness or dizziness. The patient slept well overnight. The patient denies any shortness of breath, presyncope, or syncope associated with it. PAST MEDICAL HISTORY: Nonobstructive coronary artery disease, hypertension, fibromuscular dysplasia of the renal artery, unclear as to how stenosed it is, not able to detect. PAST SURGICAL HISTORY: Parathyroidectomy, LASIK, and cardiac catheterization. SOCIAL HISTORY: Drinks occasionally. No tobacco use. No drug abuse. Works as a teacher. FAMILY HISTORY: COPD. HOME MEDICATIONS: Include amlodipine, pravastatin, nitroglycerin p.r.n., and aspirin. ALLERGIES: To amoxicillin and sulfa. It makes her very tired. REVIEW OF SYSTEMS: A 10-point review of systems other than the above is negative. PHYSICAL EXAMINATION: VITAL SIGNS: Blood pressure 126/86, pulse of 80, respiratory rate 16, on 96% on room air. GENERAL: Well-developed, well- nourished female, awake, alert, in no acute distress, though has 5/10 chest pain constantly, which she describes as aching type. HEENT: Eyes: Anicteric. Pupils equal, reacting to light and accommodating. Oropharynx clear. NECK: No JVD. No thyromegaly. CHEST: Good air entry bilaterally equal. No rales, rhonchi, rub. HEART: S1, S2 regular. No S3. No murmurs. ABDOMEN: Soft, nontender. No guarding, rigidity. Bowel sounds present. EXTREMITIES: No edema. NEURO: Grossly intact. PSYCHIATRIC: Oriented, appropriate, pleasant. LABORATORY/IMAGING: Cardiac enzymes are negative. EKG shows nonspecific ST changes in the lateral leads. Last echocardiogram was performed in May of 2017, which shows EF of 79%, mild to moderate LVH, normal size ventricle. No effusion. No significant valvular heart disease. IMPRESSION: 1. This is a 52-year-old female with atypical chest pain, which has continued at 5/10 despite no dynamic EKG changes or troponin elevation. This seems highly unusual for coronary artery stenosis related chest pain. The possible reasons for her chest pain, include pericarditis versus pleuritis versus musculoskeletal pain. At current point in time from the cardiac standpoint, no acute intervention is recommended. The patient should get ibuprofen 600 mg q.6 hours. for possible pericarditis vs pleuritis. 2. Hypertension. Her blood pressure is in diastolic blood pressure is mildly elevated. Continue amlodipine and monitor the patient's blood pressure. 3. Dyslipidemia. She is on pravastatin and it should be continued at current dose. The patient will get outpatient stress test with Dr. Quiros. Thank you for letting me participate in the patient's care. /[id number]/MODL MTDD
--- NOTE | 2017-09-27 10:32 | HOSPPROG ---
Hospitalist Progress Note Assessment/Plan: 52 yo F w coronary vasospasm here w cp neg eval dc today see dc summary Subjective: case d/w dr barron. no events tele Objective: Vital Signs Temp Pulse Resp BP Pulse Ox 36.6 C 74 17 129/89 H 93 09/27/17 07:25 09/27/17 07:25 09/27/17 07:25 09/27/17 07:25 09/27/17 07:25 09/26/17 09/27/17 09/28/17 05:59 05:59 05:59 Intake Total 750 Output Total 850 Balance -100 - Physical Exam Constitutional: no apparent distress, appears nourished Eyes: PERRL, anicteric sclera Ears, Nose, Mouth, Throat: moist mucous membranes, hearing normal Cardiovascular: regular rate and rhythym, no murmur, rub, or gallop Respiratory: no respiratory distress, no rales or rhonchi Gastrointestinal: normoactive bowel sounds, soft, non-tender abdomen Genitourinary: no bladder fullness, No rosado in urethra Skin: warm Musculoskeletal: full muscle strength ICD10 Worksheet Patient Problems: Problems Problem Status Onset Chest pain Acute Hypertension Acute
--- NOTE | 2017-09-27 11:35 | GDS ---
[f rep st] DISCHARGE SUMMARY DISCHARGE DIAGNOSES: 1. Noncardiac chest pain. 2. History of coronary vasospasm. 3. Hyperlipidemia. 4. Hypertension. HOSPITAL COURSE: Please see admission history and physical by Dr. Dheeraj Celaya. The patient pres ented with chest pain. She had a nonischemic EKG, negative troponin. Her EKG was similar to prior. She had no events on telemetry. She was seen by Cardiology who felt this represented noncardiac alonso st pain. The patient is discharged home with an unchanged medication regimen. We discussed reasons to return that include chest pain with diaphoresis or shortness of breath, lightheadedness, dizziness . There are no signs of upper GI bleed. The patient was not tachycardic or short of breath. Did no t have an oxygen requirement. /[id number]/MODL
--- NOTE | 2017-09-27 11:48 | ASDISCHSUM ---
Discharge Information Plan Status:Home with No Needs Medically Cleared to Leave:09/27/2017 Discharge Date:09/27/2017 11:21 AM CM D/C Disposition:Home, Routine, Self-Care ADT D/C Disposition:Home, Routine, Self-Care Projected Discharge Date:09/27/2017 11:21 AM Transportation at D/C:Family Discharge Delay Reason: Follow-Up Date:09/27/2017 11:21 AM Discharge Slot: Final Diagnosis: Placement Information Patient Contact Information Contact Name:LUIZ Relationship:Sister Address: Work Phone: City: [facility] Phone: State/[place] Code: Email: Financial Information Financial Class:HMO and PPO Plans Primary Plan Desc:[facility] P[facility] HMO Primary Plan Number:[id number] Secondary Plan Desc: Secondary Plan Number: Assessment Information LACE LACE Length of stay for Answers: Less than 1 day current admission Acuity / Level of Answers: No Care: Did the patient have an inpatient admission? Comorbidities - select Answers: Coronary Artery Disease all that apply Other Notes: Coronary vasospasm, HTN, hyperli pid emia, fibromuscular dysplasia, renal artery stenosis, left ventricular hypertrophy # of Emergency department Answers: 1-2 visits in the last 6 months Score: 4 Date Signed: 09/27/2017 11:47 AM Electronically Signed By:Elizabeth Owens RN Intervention Information
[2017-09-27] MEDS ORDERED: PRAVASTATIN SODIUM 10 MG TAB PO SCH (18:00)
== END 2017-09-27 11:21 | disposition home or self-care (01) ==
LOC: F2W 20:29
PROVIDERS: ADMIT Internal Medicine; ATTEND Internal Medicine
DX: R07.89 Other chest pain (principal); E78.5 Hyperlipidemia, unspecified; I20.1 Angina pectoris with documented spasm; I10 Essential (primary) hypertension; I77.3 Arterial fibromuscular dysplasia
CPT/HCPCS: 71045; 93005; 99285; G0378; 84484-PO; J1885